=== PATIENT | female | born 1990 | race Caucasian/White ===

== ENCOUNTER 2025-02-03 12:21 | Emergency (ER) | payer BC ==
[~2025-02-03] VITALS: Ht 172.7 cm; Wt 70.5 kg
[2025-02-03 13:30] LABS: MEAN PLATELET VOLUME 8.1 FL (7.4-10.4); RED CELL DISTRIBUTION WIDTH 13.6 % (11.5-14.5)
[2025-02-03 13:34] LABS: CREATININE 0.72 MG/DL (0.40-0.90); TOTAL CARBON DIOXIDE 26.5 MMOL/L (24-32); eCRCL 112 ML/MIN; eGFR > 90 ML/MIN
[2025-02-03 14:17] LABS: LEUKOCYTE ESTERASE ,URINE NEGATIVE (Neg); NITRITES, URINE NEGATIVE (Neg); OCCULT BLOOD,URINE TRACE-LYSED (Neg)
[2025-02-03 14:20] LABS: UA COLLECTION TYPE CLN CATCH MIDSTREAM; URINE HCG NEGATIVE (NEG)
[2025-02-03 14:23] LABS: SQUAMOUS EPITHELIAL CELL,UR FEW /LPF (FEW)
[2025-02-03 14:24] LABS: MUCUS STRANDS FEW /LPF (Neg)
--- NOTE | 2025-02-03 14:52 | Physician Documentation ---
History of Present Illness Chief Complaint: Abdominal Pain Stated Complaint: ABDOMINAL PAIN Time Seen by MD: 13:58 Mode of Arrival: POV HPI The patient is seen today with complaints of acute onset of sharp lower abdominal/pelvic pain about 3-4 hours prior to entrance to the hospital. Patient presents to the hospital today with her significant other. Patient states he did have a bowel movement this morning and states she was feeling constipated prior to this morning. Patient states she then after the bowel movement went to work this morning and while at work felt severe lower abdominal/pelvic pain and felt like she was going to pass out because the pain was so bad and then had another bowel movement. Patient states her abdominal pain is still present but feeling quite a bit better from this morning. She denies any fever or chills or chest pain or shortness of breath or nausea, vomiting. She has no other concern or complaint at this time. Medication Reconciliation Allergies: Coded Allergies: Penicillins (Unverified Allergy, Unknown, 02/03/25) Review of Systems Constitutional: Denies: chills, fever, weakness Eyes: Denies: pain, blurred vision ENT: Denies: ear pain, nose pain, throat pain, mouth pain Respiratory: Denies: cough, shortness of breath Cardiovascular: Denies: chest pain, palpitations Gastrointestinal: Denies: abdominal pain, nausea, vomiting Genitourinary: Denies: burning, dysuria Female Genitalia: Denies: vaginal discharge, pelvic pain Neurological: Denies: headache, dizziness Musculoskeletal: Denies: pain, swelling Integumentary: Denies: rash, lesions Allergic/Immunologic: Denies: hives, itching Hematologic/Lymphatic: Denies: no symptoms reported Psychiatric: Denies: depression, anxiety Physical Exam Vital Signs: Temperature: 97.8, Source: Oral, Heart Rate: 70, Respiratory Rate: 16, BP: 104/62, Pulse Oximetry: 97, Weight: 70.450 Oxygen Flow Rate: 0 Physical Exam General: Awake and Alert, no acute distress. HEENT: Conjunctiva pink, Sclera clear, Mucus Membranes moist. Neck: Supple without masses and tenderness. Resp: Unlabored. Lungs clear to auscultation bilaterally. Heart: Regular Rate and rhythm, normal S1 and S2 without murmur, rub or gallop. Abdomen: Abdomen is soft, nondistended, mild tenderness to palpation in the lower quadrant and right lower quadrant. Patient has no rebound tenderness, no guarding, normoactive bowel sounds. Extremities: No cyanosis,clubbing or edema. Skin: Warm and Dry. Progress Results/Orders Results/Orders Orders - YESSI DUARTE PAC Us Pelvis/With Duplex (02/03/25 14:21) Vital Signs 02/03/25 02/03/25 12:27 13:10 Temp 97.8 Pulse 70 Resp 16 16 B/P (MAP) 104/62 Pulse Ox 97 O2 Flow Rate 0 Laboratory Tests Test 02/03/25 13:05 02/03/25 13:54 White Blood Count 8.6 Red Blood Count 4.03 L Hemoglobin 12.7 Hematocrit 37.2 Mean Corpuscular Volume 92.3 Mean Corpuscular Hemoglobin 31.5 H Mean Corpuscular Hemoglobin Concent 34.1 Red Cell Distribution Width 13.6 Platelet Count 238 Mean Platelet Volume 8.1 Neutrophils (%) (Auto) 75.5 H Lymphocytes (%) (Auto) 15.3 L Monocytes (%) (Auto) 8.3 Eosinophils (%) (Auto) 0.6 Basophils (%) (Auto) 0.3 Neutrophils # (Auto) 6.5 Lymphocytes # (Auto) 1.3 Monocytes # (Auto) 0.7 Eosinophils # (Auto) 0.1 Basophils # (Auto) 0.0 CBC Comment Sodium Level 136 Potassium Level 3.5 Chloride Level 103 Carbon Dioxide Level 26.5 Anion Gap 7 L Blood Urea Nitrogen 10 Creatinine 0.72 Estimated GFR/1.73 m2 > 90 BUN/Creatinine Ratio 13.9 Glucose Level 113 H Calcium Level 8.3 L Total Bilirubin 1.0 Aspartate Amino Transf (AST/SGOT) 21 Alanine Aminotransferase (ALT/SGPT) 15 Alkaline Phosphatase 47 Total Protein 7.1 Albumin 3.9 Globulin 3.2 Albumin/Globulin Ratio 1.2 Lipase 27 Chemistry Comments Urine Specimen Description Cln catch midstream Urine Color Yellow Urine Clarity Clear Urine pH 7.0 Urine Specific [place] 1.010 Urine Protein Negative Urine Glucose (UA) Negative Urine Ketones Negative Urine Occult Blood Trace-lysed Urine Nitrite Negative Urine Bilirubin Negative Urine Urobilinogen 0.2 Urine Leukocyte Esterase Negative Urine RBC 3-10 Urine WBC 0-4 Urine Squamous Epithelial Cells Few Urine Bacteria Few Urine Mucus Few Urine Culture Indicated Not ind Volume Urine Centrifuged 10 ml Urine HCG, Qualitative Negative Urine Comment Medical Decision Making Additional information obtaine: N/A Findings The patient is seen today with complaints of acute onset of sharp lower a bdominal/pelvic pain about 3-4 hours prior to entrance to the hospital. Patient presents to the hospital today with her significant other. Patient states he did have a bowel movement this morning and states she was feeling constipated prior to this morning. Patient states she then after the bowel movement went to work this morning and while at work felt severe lower abdominal/pelvic pain and felt like she was going to pass out because the pain was so bad and then had another bowel movement. Patient states her abdominal pain is still present but feeling quite a bit better from this morning. She denies any fever or chills or chest pain or shortness of breath or nausea, vomiting. She has no other concern or complaint at this time. Patient did have labs and ultrasound of the pelvis that were both largely unremarkable. Patient's urinalysis was unremarkable with no sign of UTI and negative for . IUD was in place and no sign of free fluid or ovarian cysts. Patient will keep a close eye on her abdominal pain and will monitor for any changes and will return to the ED with any worsening, concerning or changing symptoms within the next 1-3 days. Or sooner as needed. Patient's symptoms were largely attributed most likely to bowel movement/constipation/bowel gas. Differential Dx:Considerations: -Complete, -Incomplete, -Missed, -Threatened, Appendicitis, Bowel obstruction, Hernia, Ischemic bowel, Ovarian cyst/torsion, PID, Urolithiasis Departure Disposition: HOME / SELF CARE / HOMELESS Impression: Primary Impression: Abdominal pain Qualified Codes: R10.31 - Right lower quadrant pain Condition: Stable Discharge Instructions: Abdominal Pain (Nonspecific) Additional Instructions: Patient did have labs and ultrasound of the pelvis that were both largely unremarkable. Patient's urinalysis was unremarkable with no sign of UTI and negative for . IUD was in place and no sign of free fluid or ovarian cysts. Patient will keep a close eye on her abdominal pain and will monitor for any changes and will return to the ED with any worsening, concerning or changing symptoms within the next 1-3 days. Or sooner as needed. Patient's symptoms were largely attributed most likely to bowel movement/constipation/bowel gas. Referrals: NO PRIMARY CARE PROVIDER (PCP) Signature Scribe Signature: No scribe Attestation: No scribe DUARTE,YESSI R [facility] Feb 03, 2025 14:52
--- NOTE | 2025-02-03 15:08 | RADIOLOGY REPORT ---
Procedure: US US PELVIS/WITH DUPLEX [facility] Study Date and Requested Time: 02/03/2025 02:39 PM Study Description: US US PELVIS/WITH DUPLEX History: pelvic pain, with IUD Comparison: None Technique: Multiple transabdominal and transvaginal high resolution campos-scale images obtained of the uterus and adnexa with color Doppler for evaluation of adnexal blood flow and vascularity as indicated. Findings: Uterus measures 8.1 x 3.8 x 6.7 cm with homogeneous echotexture. Endometrium within normal limits. Cervix within normal limits. Intrauterine device is noted and appears to be in satisfactory position. Right ovary measures 4.1 x 3.1 x 3 cm. Left ovary measures 3 x 1.8 x 1.9 cm. Normal ovarian color Doppler flow bilaterally. No evidence of cystic or solid ovarian lesions. No evidence of free fluid in the cul-de-sac. Impression: Unremarkable sonographic study of the pelvis. Intrauterine device is noted in place.
[2025-02-03 15:20] VITALS: BP 120/65; PULSE 78; RESP 16; TEMP 98.6; O2SAT 99
== END 2025-02-03 15:22 | disposition home or self-care (01) ==
LOC: ER 12:23
DX: R10.30 Lower abdominal pain, unspecified (principal); Z88.0 Allergy status to penicillin
CPT/HCPCS: 36415; 76856; 80053; 81001; 81025; 83690; 85025; 93976; 99284